=== PATIENT | male | born 2000 | race Caucasian/White ===

== ENCOUNTER 2021-08-05 19:48 | Emergency (ER) | payer OTHER, SELFPAY ==
[2021-08-05 20:01] VITALS: BP 123/57; PULSE 64; RESP 15; TEMP 36.9; O2SAT 99; BMI 25.7
[2021-08-05 23:31] VITALS: BP 120/70; PULSE 52; O2SAT 100
[2021-08-06] VITALS: BP 126/59; PULSE 52; RESP 11; O2SAT 100
[2021-08-06 00:30] VITALS: BP 123/67; PULSE 54; RESP 12; O2SAT 100
[2021-08-06 01:00] VITALS: BP 124/68; PULSE 56; RESP 18; O2SAT 100
[2021-08-06 01:30] VITALS: BP 127/71; PULSE 60; RESP 22; O2SAT 100
[2021-08-06 02:00] VITALS: BP 121/68; PULSE 62; RESP 22; O2SAT 98
--- NOTE | 2021-08-06 02:11 | ED_ITS ---
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 States that this has happened before typically once or twice a month with tinnitus and dizziness associated. Does not have a history of migraines, no aura or visual changes. No other neurologic complaints of chronic headaches. Today he has not had a fever abdominal pain diarrhea. No palpitations or chest pain. Notes that he does work in a loud environment and does not typically wear hearing protection. Related Data Previous Rx's Medication Instructions Recorded lorazepam 0.5 mg tablet 0.5 mg PO BEDTIME PRN #20 tab 08/06/21 meclizine 25 mg tablet 25 mg PO BID PRN #20 tab 08/06/21 ondansetron 4 mg disintegrating 4 mg PO Q8H PRN #20 tab 08/06/21 tablet Allergies Allergy/AdvReac Type Severity Reaction Status Date / Time No Known Drug Allergies Allergy Verified 08/05/21 20:01 Review of Systems Review of Systems Narrative: Remainder of complete review of systems is otherwise unremarkable except for that included in the HPI. Patient History Social History Smoking Status: Unknown if ever smoked Smoking Status: Unknown if ever smoked alcohol intake frequency: a few times a month Substance Use Type: does not use Exam Initial Vital Signs Initial Vital Signs: Vital Signs Temperature 98.4 F 08/05/21 20:01 Pulse Rate 64 08/05/21 20:01 Respiratory Rate 15 08/05/21 20:01 Blood Pressure 123/57 L 08/05/21 20:01 Pulse Oximetry 99 08/05/21 20:01 General: Healthy appearing, in no acute distress. Able to give a complete and coherent history. Well-nourished well-developed HEENT: Moist mucous membranes, normal sclera with reactive pupils, tympanic membranes are healthy appearing with no effusions, perforations and normal movement noted Neck: No cervical adenopathy, supple Respiratory: Lungs are clear to auscultation, no wheezing no rales no rhonchi. Full and symmetrical air movement Cardiac: Regular rate and rhythm no murmurs no bruits Abdomen: Soft, nontender, good bowel tones, no flank pain Skin: Warm and dry, no rashes Neurologic: Grossly neurologically intact with no obvious asymmetries or abnormalities Extremities: No trauma, well perfused Psych: Cooperative, appropriate insight and affect Course Vital Signs Vital signs: Vital Signs - 8 hr 08/05/21 20:01 08/05/21 23:31 08/06/21 00:00 Temperature 98.4 F Pulse Rate 64 52 L 52 L Respiratory Rate 15 11 L Blood Pressure 123/57 L 120/70 126/59 L Pulse Oximetry 99 100 100 08/06/21 00:30 08/06/21 01:00 Temperature Pulse Rate 54 L 56 L Respiratory Rate 12 18 Blood Pressure 123/67 124/68 Pulse Oximetry 100 100 Medical Decision Making MDM Narrative Medical decision making narrative: 21-year-old gentleman with symptoms and complaints that sound very consistent with Meniere's disease. Will have him try ondansetron to help with acute nausea, meclizine with vertigo and if he is having combination or feels like he is spinning as he is falling asleep Ativan can also be useful. Will also ask him to follow-up with an ENT physician for confirmatory diagnosis. At this point there is nothing that looks like a stroke or worsening brain pathology that would require any head imaging at this time. Symptoms from earlier today have almost entirely resolved aside from some minor nausea. At this point questions were answered and he is safe for home discharge Discharge Plan Departure Patient Disposition: Home Clinical Impression: Tinnitus Qualifiers: Laterality: bilateral Qualified Code(s): H93.13 - Tinnitus, bilateral Meniere's disease Qualifiers: Laterality: unspecified laterality Qualified Code(s): H81.09 - Meniere's disease, unspecified ear Instructions: Meniere Disease, DI for Tinnitus Activity Restrictions/Additional Instructions: Thank you for coming in today Your symptoms certainly sound frustrating. On your clinical exam I a.m. not concerned that you have had a stroke nor [place] concerned that you have significant pathology(like a tumor) in your brain. I suspect that you do have Meniere's disease and I would like you to follow-up with an ear nose and throat physician for definitive diagnosis and best treatment options available. Please contact [facility] ear nose and throat physician at [phone] to schedule an appointment. In the meantime, I am going to give you a prescription for ondansetron/Zofran which is a nausea medicine for when your symptoms are causing nausea Meclizine is another medicine that can help with the spinning component of your symptoms And finally, if you are having the spins when you lay down with both nausea and vertigo I am giving a prescription for Ativan that can help combat those and allow for sleep. Do not take Ativan at work or while driving. For the tinnitus, consider getting a white noise machine. There are multiple options available online. Having something that has a continuous noise just 1 does supple louder than your tinnitus can often be helpful in suppressing med enough to allow sleep. If you find that you are getting worse or develop any new symptoms, please feel free to return to the emergency department for further evaluation. Prescriptions: New ondansetron 4 mg tablet,disintegrating 4 mg PO Q8H PRN (Reason: nausea and vomiting) Qty: 20 0RF meclizine 25 mg tablet 25 mg PO BID PRN (Reason: vertigo) Qty: 20 0RF lorazepam 0.5 mg tablet 0.5 mg PO BEDTIME PRN (Reason: Tinnitus, vertigo, dizziness) Qty: 20 0RF Stand Alone Forms: Work Release Note
[2021-08-06 02:30] VITALS: BP 127/80; PULSE 62; RESP 23; O2SAT 98
[2021-08-06] MEDS: ONDANSETRON 4 MG ODT SL (02:30)
[2021-08-06] MEDS: ONDANSETRON 4 MG ODT PREPACK 1 BOTTLE MISC (02:30)
== END 2021-08-06 02:57 | disposition home or self-care (01) ==
PROVIDERS: Emergency Provider Emergency Medicine
DX: H93.13 Tinnitus, bilateral (principal); H81.09 Meniere's disease, unspecified ear
CPT/HCPCS: 99283

== ENCOUNTER 2023-01-05 13:14 | Emergency (ER) | payer OTHER, SELFPAY ==
[2023-01-05 13:21] VITALS: BP 119/59; PULSE 65; RESP 16; TEMP 37.3; O2SAT 100; BMI 26.4
== END 2023-01-05 14:26 | disposition left against medical advice (07) ==
PROVIDERS: Emergency Provider Student in an Organized Health Care Education/Training Program
DX: R10.9 Unspecified abdominal pain (principal)
CPT/HCPCS: 99281

== ENCOUNTER 2024-01-25 11:33 | Emergency (ER) | payer MEDICAID, OTHER, SELFPAY ==
[2024-01-25 12:34] VITALS: BP 105/69; PULSE 76; RESP 16; TEMP 36.7; O2SAT 99; BMI 26.4
[2024-01-25 13:09] LABS: Bacteria Urine Occasional (0-1); Culture Indicated Urine Cult Not Indicated; Mucus Urine 3+ (Negative); RBC Urine 1-5/HPF (0-5/HPF); Squamous Epithelial Cell Urine 0-1 /HPF (0-5/HPF); Urine Volume 10mL (spun); WBC Urine 0-1/HPF (0-5/HPF)
[2024-01-25 13:17] LABS: Add Manual Diff / Slide Review NO; Basophils Absolute Auto 0 /uL (0-100); Basophils Percent Auto 0.4 % (0-2); Eosinophils Absolute Auto 200 /uL (0-450); Eosinophils Percent Auto 2.7 % (2-4); Hemoglobin 16.5 g/dL (13.5-17.5); Lymphocytes Absolute Auto 500 /uL (1100-4500); Lymphocytes Percent Auto 7.7 % (25-40); Mean Corpuscular HGB Conc 35.1 % (30-36); Mean Corpuscular Hemoglobin 32.2 PG (26-34); Mean Corpuscular Volume 91.8 fL (80-100); Monocytes Absolute Auto 600 /uL (0-900); Monocytes Percent Auto 10.2 % (3-14); Neutrophils Absolute Auto 4900 /uL (1500-7000); Platelet Count 167 X10^3/uL (150-400); Red Blood Cell Count 5.12 X10^6/uL (4.5-5.9); Red Cell Distribution Width 13.2 % (11.6-14.8); White Blood Cell Count 6.2 X10^3/uL (4.5-11.0)
[2024-01-25 13:29] LABS: Alanine Aminotransferase 27 IU/L (<50); Albumin Globulin Ratio 1.9 (1.0-2.8); Alkaline Phosphatase 71 U/L (38-126); Aspartate Aminotransferase 50 IU/L (17-59); BUN Creatinine Ratio 12.5 (6-22); Bilirubin Total 0.9 mg/dL (0.2-1.3); Blood Urea Nitrogen 11 mg/dL (9-20); Calcium 9.3 mg/dL (8.4-10.2); Carbon Dioxide 26 mmol/L (22-32); Chloride 102 mmol/L (98-107); Estimated Glomerular Filt Rate > 60 mL/min (>60); Globulin 2.7 g/dL (1.7-4.1); Glucose 89 mg/dL (70-100); HEMOLYSIS 18 (0-50); Lipase 60 U/L (23-300); Potassium 4.2 mmol/L (3.4-5.1); Sodium 138 mmol/L (137-145); Total Protein 7.7 g/dL (6.3-8.2)
--- NOTE | 2024-01-25 15:18 | DI.CT.S_ITS ---
PROCEDURE: CT ABDOMEN PELVIS W CON INDICATIONS: abd pain TECHNIQUE: After the administration of intravenous contrast, axial sections acquired from the lung bases to the pubic symphysis. Coronal and sagittal reformats were performed. For radiation dose reduction, the following was used: automated exposure control, adjustment of mA and/or kV according to patient size. COMPARISON: None. FINDINGS: Image quality: Diagnostic. Lower Chest: No significant findings. ABDOMEN: Liver: No solid mass. Suspected vascular shunt in segment 7, which is tiny period Gallbladder: No radiopaque gallstones or wall thickening. Biliary ducts: No biliary dilation. Pancreas: No ductal dilation. Spleen: Size is within normal limits. Adrenal Glands: No adrenal nodules. Kidneys and Ureters: No hydronephrosis. No solid mass. No complex renal cystic lesion which requires follow up. Stomach and Bowel: Normal colonic caliber, without significant wall thickening. The appendix measures 8 millimeters in with. The wall measures less than 3 millimeters. No periappendiceal fat stranding. Mild hyperemia present. No diverticular disease. Peritoneum: No abnormal intraperitoneal fluid. No free air. Ventral Wall: No significant ventral hernia. Abdominal Nodes: No retroperitoneal or mesenteric adenopathy by size criteria. Vessels: Aorta and inferior vena cava are normal in size. PELVIS: Pelvic Organs: Unremarkable. Bladder: No bladder wall thickening, accounting for underdistention. Pelvic Nodes: No enlarged lymph nodes. Miscellaneous: No inguinal hernias are seen. Bones: No aggressive osseous abnormality. IMPRESSION: There is mild wall hyperemia of the appendix, which is nondistended and without a thickened wall. No periappendiceal fat stranding. Findings may indicate very early acute appendicitis. Consider surgical consultation if there is right lower quadrant or periumbilical pain. Dictated by: James Penaloza M.D. on 01/25/2024 at 16:11 Approved by: James Penaloza M.D. on 01/25/2024 at 16:14
--- NOTE | 2024-01-25 15:19 | ED.ABDPAIN ---
HPI - Abdominal Pain <Ronnie Mercer PA-C - Last Filed: 01/31/24 12:47> General Chief Complaint: Abdominal Pain Stated Complaint: Food Poisoning, Blood in Urine Time Seen by Provider: 01/25/24 15:14 Source: patient Mode of arrival: Ambulatory History of Present Illness HPI narrative: 23-year-old male with no reported past medical history presents to the ED with 3 days of nausea, vomiting, abdominal pain. Patient states that he believes he got some food poisoning from drinking a can of coffee. Patient states he is unable to keep down any solids or fluids, endorses multiple episodes of vomiting. Patient also endorses watery diarrhea. Endorses generalized abdominal pain. No fever, chills, chest pain, shortness of breath, dysuria, lightheadedness, dizziness, syncope. Related Data Previous Rx's Medication Instructions Recorded lorazepam 0.5 mg tablet 0.5 mg PO BEDTIME PRN Tinnitus, 08/06/21 vertigo, dizziness #20 tabs meclizine 25 mg tablet 25 mg PO BID PRN vertigo #20 tabs 08/06/21 ondansetron 4 mg disintegrating 4 mg PO Q8H PRN nausea and 08/06/21 tablet vomiting #20 tabs amoxicillin 875 mg-potassium 1 tab PO BID appendicitis #14 tabs 01/25/24 clavulanate 125 mg tablet Allergies Allergy/AdvReac Type Severity Reaction Status Date / Time No Known Drug Allergies Allergy Verified 08/05/21 20:01 Review of Systems <Ronnie Mercer PA-C - Last Filed: 01/31/24 12:47> Constitutional Constitutional: Denies chills, Denies fatigue, Denies fever(s), Denies frequent falls, Denies lethargy and Denies weakness Eyes Eyes: Denies change in vision, Denies eye discharge, Denies irritation and Denies loss of vision ENT Ears, Nose, Mouth, and Throat: Denies change in voice, Denies dizziness, Denies neck pain, Denies sore throat and Denies throat swelling Cardiovascular Cardiovascular: Denies chest pain, Denies irregular heart rhythm, Denies lightheadedness, Denies palpitations, Denies dyspnea, Denies dyspnea on exertion and Denies orthopnea Respiratory Respiratory: Denies cough, Denies dyspnea, Denies dyspnea on exertion and Denies wheezing Gastrointestinal Gastrointestinal: Reports abdominal pain, Denies change in bowel habits, Reports diarrhea, Reports nausea and Reports vomiting Musculoskeletal Musculoskeletal: Denies neck pain and Denies numbness Integumentary/Breasts Skin/Breast: Denies pruritus, Denies erythema, Denies rash and Denies wounds Neurologic Neurologic: Denies behavioral changes, Denies confusion, Denies dizziness, Denies frequent falls, Denies loss of vision, Denies numbness and Denies weakness Psychiatric Psychiatric: Denies anxiety, Denies behavioral changes, Denies confusion, Denies depression, Denies homicidal ideation and Denies suicidal ideation Endocrine Endocrine: Denies fatigue, Denies flushing and Denies palpitations Hematologic/Lymphatic Hematologic/Lymphatic: Denies easy bruising Allergic/Immunologic Allergic/Immunologic: Denies urticaria, Denies throat swelling and Denies wheezing Patient History <Ronnie Mercer PA-C - Last Filed: 01/31/24 12:47> Social History Smoking Status: Never smoker Smoking Status: Never smoker alcohol intake frequency: a few times a month Substance Use Type: does not use Exam <Ronnie Mercer PA-C - Last Filed: 01/31/24 12:47> Narrative Exam Narrative: Const General:?cooperative, healthy appearing and comfortable [facility] Head:?normal to inspection Ears:?hearing grossly normal bilaterally Nose:?external nose normal Face and sinus:?normal facial exam and sinuses nontender Mouth:?oral mucosae normal Throat:?posterior oropharynx normal Eyes General:?appearance normal, both eyes and all related structures Neck Neck:?normal visual inspection and no lymphadenopathy noted Resp Effort & Inspection:?normal respiratory effort Auscultation:?clear to auscultation bilaterally Cardio Rate:?regular rate Rhythm:?regular rhythm GI Abdomen is soft, nondistended. There is generalized tenderness to palpation. Neuro General:?patient alert, patient awake and patient oriented x3 Initial Vital Signs Initial Vital Signs: Vital Signs Temperature 98.1 F 01/25/24 12:34 Pulse Rate 76 01/25/24 12:34 Respiratory Rate 16 01/25/24 12:34 Blood Pressure 105/69 01/25/24 12:34 Pulse Oximetry 99 01/25/24 12:34 Oxygen Delivery Method Room Air 01/25/24 12:34 <Angelia Dacosta DO - Last Filed: 02/01/24 03:56> Initial Vital Signs Initial Vital Signs: Vital Signs Temperature 98.1 F 01/25/24 12:34 Pulse Rate 76 01/25/24 12:34 Respiratory Rate 16 01/25/24 12:34 Blood Pressure 105/69 01/25/24 12:34 Pulse Oximetry 99 01/25/24 12:34 Oxygen Delivery Method Room Air 01/25/24 12:34 Course <Ronnie Mercer PA-C - Last Filed: 01/31/24 12:47> Orders Ordered: Discontinued Medications Piperacillin Sod/Tazobactam (Sod 4.5 gm/ Sodium Chloride) 100 mls @ 200 mls/hr IV NOW ONE Stop: 01/25/24 16:31 Last Infusion: 01/25/24 17:30 Dose: Infused Documented By: Admin: 01/25/24 17:00 Dose: 200 mls/hr Documented By: SOLO Ketorolac Tromethamine (Ketorolac 30 Mg/Ml Vial) 15 mg IV NOW ONE Stop: 01/25/24 15:19 Last Admin: 01/25/24 15:26 Dose: 15 mg Documented By: SOLO Ondansetron HCl (Ondansetron 4 Mg/2 Ml Inj) 4 mg IV NOW PRN PRN Reason: Nausea And Vomiting Ondansetron HCl (Ondansetron 4 Mg Odt) 4 mg PO NOW PRN PRN Reason: Nausea And Vomiting Ondansetron HCl (Ondansetron 4 Mg/2 Ml Inj) 4 mg IV NOW ONE Stop: 01/25/24 15:19 Last Admin: 01/25/24 15:26 Dose: 4 mg Documented By: SOLO Vital Signs Vital signs: Vital Signs - 8 hr 01/25/24 12:34 Temperature 98.1 F Pulse Rate 76 Respiratory Rate 16 Blood Pressure 105/69 Pulse Oximetry 99 Oxygen Delivery Method Room Air <DO Shay Goldstein Last Filed: 02/01/24 03:56> Orders Ordered: Discontinued Medications Piperacillin Sod/Tazobactam (Sod 4.5 gm/ Sodium Chloride) 100 mls @ 200 mls/hr IV NOW ONE Stop: 01/25/24 16:31 Last Infusion: 01/25/24 17:30 Dose: Infused Documented By: Admin: 01/25/24 17:00 Dose: 200 mls/hr Documented By: SOLO Ketorolac Tromethamine (Ketorolac 30 Mg/Ml Vial) 15 mg IV NOW ONE Stop: 01/25/24 15:19 Last Admin: 01/25/24 15:26 Dose: 15 mg Documented By: SOLO Ondansetron HCl (Ondansetron 4 Mg/2 Ml Inj) 4 mg IV NOW PRN PRN Reason: Nausea And Vomiting Ondansetron HCl (Ondansetron 4 Mg Odt) 4 mg PO NOW PRN PRN Reason: Nausea And Vomiting Ondansetron HCl (Ondansetron 4 Mg/2 Ml Inj) 4 mg IV NOW ONE Stop: 01/25/24 15:19 Last Admin: 01/25/24 15: Dose: 4 mg Documented By: SOLO Vital Signs Vital signs: Vital Signs - 8 hr 01/25/24 12:34 Temperature 98.1 F Pulse Rate 76 Respiratory Rate 16 Blood Pressure 105/69 Pulse Oximetry 99 Oxygen Delivery Method Room Air MDM - Abdominal Pain <Ronnie Mercer PA-C - Last Filed: 01/31/24 12:47> Lab Data 01/25/24 13:05 01/25/24 13:05 Labs: Lab Results 01/25/24 01/25/24 Range/Units 12:44 13:05 WBC 6.2 (4.5-11.0) X10^3/uL RBC 5.12 (4.5-5.9) X10^6/uL Hgb 16.5 (13.5-17.5) g/dL Hct 47.0 (41-53) % MCV 91.8 (80-100) fL MCH 32.2 (26-34) PG MCHC 35.1 (30-36) % RDW 13.2 (11.6-14.8) % Plt Count 167 (150-400) X10^3/uL Neut % (Auto) 79.0 H (50-75) % Lymph % (Auto) 7.7 L (25-40) % [place] % (Auto) 10.2 (3-14) % Eos % (Auto) 2.7 (2-4) % Baso % (Auto) 0.4 (0-2) % Neut # (Auto) 4900 (2253-2055) /uL Lymph # (Auto) 500 L (9037-9373) /uL [place] # (Auto) 600 (0-900) /uL Eos # (Auto) 200 (0-450) /uL Baso # (Auto) 0 (0-100) /uL Sodium 138 (137-145) mmol/L Potassium 4.2 (3.4-5.1) mmol/L Chloride 102 (98-107) mmol/L Carbon Dioxide 26 (22-32) mmol/L BUN 11 (9-20) mg/dL Creatinine 0.88 (0.66-1.25) mg/dL Estimated GFR > 60 (>60) mL/min BUN/Creatinine Ratio 12.5 (6-22) Glucose 89 (70-100) mg/dL Calcium 9.3 (8.4-10.2) mg/dL Total Bilirubin 0.9 (0.2-1.3) mg/dL AST 50 (17-59) IU/L ALT 27 (<50) IU/L Alkaline Phosphatase 71 (38-126) U/L Total Protein 7.7 (6.3-8.2) g/dL Albumin 5.0 (3.5-5.0) g/dL Globulin 2.7 (1.7-4.1) g/dL Albumin/Globulin Ratio 1.9 (1.0-2.8) Lipase 60 (23-300) U/L Urine RBC 1-5/hpf (0-5/HPF) Urine WBC 0-1/hpf (0-5/HPF) Ur Squamous Epith Cells 0-1 /hpf (0-5/HPF) Urine Bacteria Occasional (0-1) (None) Urine Mucus 3+ H (Negative) Ur Culture Indicated? Cult not indicated Vol Urine Centrifuged 10ml (spun) Point of care testing: Urine Dip Bedside Urine Glucose Negative Bedside Urine Bilirubin - Negative Bedside Urine Ketone +++ 80 Urine Specific [place] 1.020 Bedside Urine Occult Blood +/- Bedside Urine pH 6.0 Bedside Urine Protein +/- 15 Bedside Urine Urobilinogen - Negative Bedside Urine Nitrite - Negative Bedside Urine Leukocytes - Negative Esterase MDM Narrative Medical decision making narrative: 23-year-old male with no reported past medical history presents to the ED with 3 days of nausea, vomiting, abdominal pain. Concern for gastroenteritis versus colitis versus appendicitis versus kidney stones versus other intra-abdominal pathology versus other. Will obtain labs, urine, CT abdomen pelvis. Will give ketorolac, Zofran for symptoms. Will reassess. Labs unremarkable. Urine without UTI. CT abdomen pelvis with mild wall hyperemia of the appendix, which is nondistended and without a thickened wall. No periappendiceal fat stranding. Findings may indicate very early acute appendicitis. Dr. Moreno from surgery consulted. He will see the patient shortly. Recommends a dose of IV Zosyn. Will obtain blood cultures prior to antibiotics. Patient Given a dose of IV Zosyn. patient was seen by Dr. Moreno. plan is for patient to start antibiotics, discharge home. Patient agrees to return to the ED if symptoms worsen. ED return precautions discussed with patient. Patient verbalized understanding. Medical records reviewed: Yes <Angelia Dacosta DO - Last Filed: 02/01/24 03:56> Lab Data Labs: Lab Results 01/25/24 01/25/24 Range/Units 12:44 13:05 WBC 6.2 (4.5-11.0) X10^3/uL RBC 5.12 (4.5-5.9) X10^6/uL Hgb 16.5 (13.5-17.5) g/dL Hct 47.0 (41-53) % MCV 91.8 (80-100) fL MCH 32.2 (26-34) PG MCHC 35.1 (30-36) % RDW 13.2 (11.6-14.8) % Plt Count 167 (150-400) X10^3/uL Neut % (Auto) 79.0 H (50-75) % Lymph % (Auto) 7.7 L (25-40) % [place] % (Auto) 10.2 (3-14) % Eos % (Auto) 2.7 (2-4) % Baso % (Auto) 0.4 (0-2) % Neut # (Auto) 4900 (3489-1014) /uL Lymph # (Auto) 500 L (4610-3415) /uL [place] # (Auto) 600 (0-900) /uL Eos # (Auto) 200 (0-450) /uL Baso # (Auto) 0 (0-100) /uL Sodium 138 (137-145) mmol/L Potassium 4.2 (3.4-5.1) mmol/L Chloride 102 (98-107) mmol/L Carbon Dioxide 26 (22-32) mmol/L BUN 11 (9-20) mg/dL Creatinine 0.88 (0.66-1.25) mg/dL Estimated GFR > 60 (>60) mL/min BUN/Creatinine Ratio 12.5 (6-22) Glucose 89 (70-100) mg/dL Calcium 9.3 (8.4-10.2) mg/dL Total Bilirubin 0.9 (0.2-1.3) mg/dL AST 50 (17-59) IU/L ALT 27 (<50) IU/L Alkaline Phosphatase 71 (38-126) U/L Total Protein 7.7 (6.3-8.2) g/dL Albumin 5.0 (3.5-5.0) g/dL Globulin 2.7 (1.7-4.1) g/dL Albumin/Globulin Ratio 1.9 (1.0-2.8) Lipase 60 (23-300) U/L Urine RBC 1-5/hpf (0-5/HPF) Urine WBC 0-1/hpf (0-5/HPF) Ur Squamous Epith Cells 0-1 /hpf (0-5/HPF) Urine Bacteria Occasional (0-1) (None) Urine Mucus 3+ H (Negative) Ur Culture Indicated? Cult not indicated Vol Urine Centrifuged 10ml (spun) Point of care testing: Urine Dip Bedside Urine Glucose Negative Bedside Urine Bilirubin - Negative Bedside Urine Ketone +++ 80 Urine Specific [place] 1.020 Bedside Urine Occult Blood +/- Bedside Urine pH 6.0 Bedside Urine Protein +/- 15 Bedside Urine Urobilinogen - Negative Bedside Urine Nitrite - Negative Bedside Urine Leukocytes - Negative Esterase Discharge Plan Departure Patient Disposition: Home Clinical Impression: Appendicitis Qualifiers: Appendicitis type: acute appendicitis Acute appendicitis type: unspecified acute appendicitis type Qualified Code(s): K35.80 - Unspecified acute appendicitis Instructions: DI for Appendicitis -- Adult Activity Restrictions/Additional Instructions: You were evaluated in the ED today for nausea, vomiting, abdominal pain. Your labs and urine were normal. Your CT scan did show very early acute appendicitis, for which Dr. Moreno from surgery was consulted. Per his recommendation, you were given a dose of IV antibiotics in the ED. You have also been prescribed a dose of oral antibiotics to take at home for the next 7 days. You may take Tylenol, ibuprofen for pain. Please monitor your symptoms and return to the ED if you have worsening pain, vomiting. Prescriptions: New amoxicillin-pot clavulanate 875-125 mg tablet 1 tab PO BID Qty: 14 0RF No Action ondansetron 4 mg tablet,disintegrating 4 mg PO Q8H PRN (Reason: nausea and vomiting) Qty: 20 0RF meclizine 25 mg tablet 25 mg PO BID PRN (Reason: vertigo) Qty: 20 0RF lorazepam 0.5 mg tablet 0.5 mg PO BEDTIME PRN (Reason: Tinnitus, vertigo, dizziness) Qty: 20 0RF Stand Alone Forms: Patient Portal/API/Survey ED Sign-out <Angelia Dacosta DO - Last Filed: 02/01/24 03:56> Cosign ED Attending Madan Attestation: I was immediately available in the department for consultation.
[2024-01-25] MEDS: KETOROLAC 30 MG/ML VIAL 15 MG IV (15:26)
[2024-01-25] MEDS: ONDANSETRON 4 MG/2 ML INJ IV (15:26)
--- NOTE | 2024-01-25 16:47 | PM.CN ---
History of Present Illness Consult details Date Patient Seen: 01/25/24 Time Patient Seen: 16:47 Chief complaint: Food Poisoning, Blood in Urine Reason for consult: suspect appendicitis Requesting provider: Ronnie Mercer Narrative: 23 year old, otherwise healthy male with 3 days of vague, central abdominal pain, nausea and emesis. Initially suspected to be food poisoning. CT scan shows a very mildly hyperemic appendix with possible early appendicitis. 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 Home Medications and Allergies Home Medications Medication Instructions Recorded Confirmed Type lorazepam 0.5 mg tablet 0.5 mg PO BEDTIME PRN Tinnitus, 08/06/21 Rx vertigo, dizziness #20 tabs meclizine 25 mg tablet 25 mg PO BID PRN vertigo #20 tabs 08/06/21 Rx ondansetron 4 mg disintegrating 4 mg PO Q8H PRN nausea and 08/06/21 Rx tablet vomiting #20 tabs Allergies Allergy/AdvReac Type Severity Reaction Status Date / Time No Known Drug Allergies Allergy Verified 08/05/21 20:01 Review of Systems Constitutional Constitutional: Reports anorexia, Denies chills and Denies excessive sweating Eyes Eyes: Reports system reviewed and no additional complaints, except as documented ENT Ears, Nose, Mouth, and Throat: Yes system reviewed and no additional complaints, except as documented Cardiovascular Cardiovascular: Reports system reviewed and no additional complaints, except as documented Respiratory Respiratory: Reports system reviewed and no additional complaints, except as documented Gastrointestinal Gastrointestinal: Reports abdominal pain, Denies change in bowel habits, Denies constipation, Reports nausea and Reports vomiting Genitourinary Genitourinary: Reports system reviewed and no additional complaints, except as documented Musculoskeletal Musculoskeletal: Reports system reviewed and no additional complaints, except as documented Integumentary/Breasts Skin/Breast: Reports system reviewed and no additional complaints, except as documented Neurologic Neurologic: Reports system reviewed and no additional complaints, except as documented Psychiatric Psychiatric: Reports system reviewed and no additional complaints, except as documented Endocrine Endocrine: Reports system reviewed and no additional complaints, except as documented and Denies excessive sweating Hematologic/Lymphatic Hematologic/Lymphatic: Reports system reviewed and no additional complaints, except as documented Allergic/Immunologic Allergic/Immunologic: Reports system reviewed and no additional complaints, except as documented Exam Vital Signs (past 8 hours): - 01/25/24 12:34 Temperature 98.1 F Pulse Rate 76 Respiratory Rate 16 Blood Pressure 105/69 Pulse Oximetry 99 Oxygen Delivery Method Room Air Oxygen Delivery Method Room Air Const General: cooperative, healthy appearing and comfortable [facility] Head: normal to inspection Nose: external nose normal Mouth: oral mucosae normal Eyes General: appearance normal, both eyes and all related structures Sclera: sclerae normal EOM: EOM intact bilaterally Neck Neck: normal visual inspection and trachea midline Resp Effort & Inspection: normal respiratory effort Cardio Rate: regular rate GI Palpation: soft, No guarding, No rigid and tender (mild periumbilical tenderness, negative McBirney's sign, negative Rovsing.) Skin General: no rashes or lesions noted Extrem General: normal to inspection and full ROM Psych Appearance: grossly normal and well kempt Objective Imaging CT scan - abdomen: My impression: possible very mild, early appendicitis with air in the proximal appendix without fecalith, perforation, or abscess. Hyperemia in the distal appendix may obscure a small fecalith Labs 01/25/24 13:05 01/25/24 13:05 Labs: Laboratory Results - last 24 hr 01/25/24 01/25/24 12:44 13:05 WBC 6.2 RBC 5.12 Hgb 16.5 Hct 47.0 MCV 91.8 MCH 32.2 MCHC 35.1 RDW 13.2 Plt Count 167 Neut % (Auto) 79.0 H Lymph % (Auto) 7.7 L [place] % (Auto) 10.2 Eos % (Auto) 2.7 Baso % (Auto) 0.4 Neut # (Auto) 4900 Lymph # (Auto) 500 L [place] # (Auto) 600 Eos # (Auto) 200 Baso # (Auto) 0 Sodium 138 Potassium 4.2 Chloride 102 Carbon Dioxide 26 BUN 11 Creatinine 0.88 Estimated GFR > 60 BUN/Creatinine Ratio 12.5 Glucose 89 Calcium 9.3 Total Bilirubin 0.9 AST 50 ALT 27 Alkaline Phosphatase 71 Total Protein 7.7 Albumin 5.0 Globulin 2.7 Albumin/Globulin Ratio 1.9 Lipase 60 Urine RBC 1-5/hpf Urine WBC 0-1/hpf Ur Squamous Epith Cells 0-1 /hpf Urine Bacteria Occasional (0-1) Urine Mucus 3+ H Ur Culture Indicated? Cult not indicated Vol Urine Centrifuged 10ml (spun) [facility], [facility] Tobacco & Substance Use Smoking Status: Never smoker Assessment & Plan Assessment and plan (1) Acute appendicitis without peritonitis: Status: Acute Assessment & Plan narrative: Offered patient either lap appy or antibiotics. Given his normal WBC, very early finding on CT scan, and exam without any signs of peritonitis, I think he would do well with antibiotics. I explained to him that there is a 20-30% chance of failure of conservative treatment, which would require presentation to the ER for lap yeseniay. He will get a dose of IV antibiotics here, and I will send him with a 7 day course of Augmentin. Time-Based Coding :: [TOTAL MINUTES] spent with patient and on the chart (including review of chart, obtaining history, exam, reviewing outside data, placing orders, documenting exam and treatment plan, and counseling patient) on [DATE]. PROFEE Charge Codes Inpatient or Observation consultation: 21908
[2024-01-25] MEDS: PIPERACILLIN/TAZO 4.5 GM in SODIUM CHLORIDE 0.9% 100 ML IV (17:00)
[2024-01-25 17:34] VITALS: BP 108/58; PULSE 69; RESP 18; O2SAT 97
== END 2024-01-25 18:52 | disposition home or self-care (01) ==
PROVIDERS: Emergency Medicine; Emergency Provider Student in an Organized Health Care Education/Training Program
DX: K35.80 Unspecified acute appendicitis (principal); R10.9 Unspecified abdominal pain; R11.2 Nausea with vomiting, unspecified
CPT/HCPCS: 36415; 74177; 80053; 81003; 81015; 83690; 85025; 87040; 96365; 96375; 99284; J1885; J2405; J2543; Q9967